=== PATIENT | male | born 1985 | race Caucasian/White ===

== ENCOUNTER 2023-08-19 19:58 | Emergency (ER) | payer OTHER, SELFPAY ==
[2023-08-19 20:05] VITALS: BP 131/85; PULSE 97; RESP 18; TEMP 37.1; O2SAT 96; BMI 34.4
--- NOTE | 2023-08-19 20:20 | CRLHL7_ITS ---
For Patients: As a result of the Century Cures Act, medical imaging exams and procedure reports are released immediately into your electronic medical record. You may view this report before your referring provider. If you have questions, please contact your health care provider. INDICATION: Back pain. TECHNIQUE: Lumbar spine 2 views. COMPARISON: None. FINDINGS: There are 5 lumbar type vertebral bodies. Small accessory rib on the right at L1. Minimal retrolisthesis of L2 on L3. No acute fracture identified. Vertebral body and disc space heights are well maintained. The sacroiliac joints are normal in appearance. Soft tissues are unremarkable. IMPRESSION: 1. No acute findings. 2. Minimal retrolisthesis of L2 on L3. Dictated by Paty Miles MD @ 08/19/2023 8:41:59 PM (Electronically Signed)
--- NOTE | 2023-08-19 20:21 | ED.BACK ---
HPI - Back Pain/Injury General Chief Complaint: Back Injury/Pain Stated Complaint: Back injury-work related Time Seen by Provider: 08/19/23 20:17 History of Present Illness HPI Narrative: Patient is a 37-year-old gentleman who has history of back pain previously who presents with pain in his lumbar spine of approximately 36 hours duration. The pain began at work he had no recent injuries. He has had no fevers no chills no bowel or bladder symptoms no nausea no vomiting. He has minimal radiculopathy. The pain is severe and concentrated his low lumbar spine. No signs of fever or infection. Patient is otherwise feeling well with no neurologic symptoms. Related Data Home Medications Medication Instructions Recorded Confirmed gabapentin 100 mg capsule mg PO 3XD 08/19/23 Allergies Allergy/AdvReac Type Severity Reaction Status Date / Time No Known Drug Allergies Allergy Verified 08/19/23 20:11 Review of Systems Status of ROS: Reports: 10 or more systems reviewed and unremarkable except as noted in History and below Exam Narrative: Exam Narrative: EXAM GENERAL: Patient appears comfortable and well. EYES: No scleral icterus. LYMPH: No supraclavicular or cervical lymphadenopathy. SKIN: Visible skin seen during exam normal or with benign process only. EXT: No dependent lower extremity pedal edema. HEART: Regular rate and rhythm with no murmurs, rubs, or gallops. LUNGS: Clear to auscultation bilaterally with no crackles or wheezes. ABD: Soft, non tender, non distended. PSYCH: Good eye contact, speech is not pressured. Examination lumbar spine shows rigidity with decreased range of motion no other palpable abnormalities. Neurologic exam cranial nerves 2-12 grossly intact no focal defects. Const: Vital Signs, click to edit/add: Vital Signs - 24 hr 08/19/23 20:05 Temperature 98.8 F Pulse Rate [Right Pulse Oximeter] 97 Respiratory Rate 18 Blood Pressure [Ri ght Upper Arm] 131/85 Pulse Oximetry 96 Oxygen Delivery Me thod Room Air Course Course ED Course: Lumbar spine x-ray pending. 30 mg IM Toradol given. Vital Signs Vital signs: Initial Vital Signs Temperature 98.8 F 08/19/23 20:05 Temperature Source Temporal Artery Scan 08/19/23 20:05 Pulse Rate 97 08/19/23 20:05 Respiratory Rate 18 08/19/23 20:05 Blood Pressure 131/85 08/19/23 20:05 Blood Pressure Mean 100 08/19/23 20:05 Blood Pressure Position Sitting 08/19/23 20:05 Pulse Oximetry 96 08/19/23 20:05 Oxygen Delivery Method Room Air 08/19/23 20:05 Vital Signs Temperature 98.8 F 08/19/23 20:05 Pulse Rate 97 08/19/23 20:05 Respiratory Rate 18 08/19/23 20:05 Blood Pressure 131/85 08/19/23 20:05 Pulse Oximetry 96 08/19/23 20:05 Oxygen Delivery Method Room Air 08/19/23 20:05 Temperature 98.8 F 08/19/23 20:05 Pulse Rate 97 08/19/23 20:05 Respiratory Rate 18 08/19/23 20:05 Blood Pressure 131/85 08/19/23 20:05 Pulse Oximetry 96 08/19/23 20:05 Oxygen Delivery Method Room Air 08/19/23 20:05 MDM - Back Pain/Injury MDM Narrative Medical decision making narrative: Patient is a 37-year-old gentleman who is otherwise healthy presents with mechanical low back pain. He has a normal neurologic exam has no symptoms of fever. He has no dysuria. I did review his lumbar spine x-rays and see no acute abnormalities. This time patient is treated with Toradol 30 mg IM as well as 5 day course of prednisone 20 mg b.i.d. as well as short course of Vicodin. He will apply ice to follow-up with his primary physician next 2-3 days if symptoms do not improve. No driving or using any machinery in the interim. Differential Diagnosis Differential diagnosis: Likely lumbar radiculopathy, sciatica, strain of lumbar region, renal colic, pyelonephritis, thoracic back pain, AAA and discitis Discharge Plan Discharge Clinical Impression: Strain of lumbar region Patient Disposition: Home, Self-Care Condition: Stable Instructions: Back Pain (ED) Additional Instructions: Prednisone as directed Norvell as directed Ice follow-up with your doctor early this coming week. Activity Level: Activity as Tolerated Discharge Diet: Regular Prescriptions: No Action gabapentin 100 mg capsule PO 3XD Follow Up/Referrals: Butch Cabezas, LAT, ATC, CSCS [Primary Care Provider] - Stand Alone [email or web address] Info Instructions
[2023-08-19] MEDS: KETOROLAC 30 MG/ML inj IM (20:58)
== END 2023-08-19 21:22 | disposition home or self-care (01) ==
LOC: ED 21:11
PROVIDERS: Emergency Provider Internal Medicine
DX: S39.012A Strain of muscle, fascia and tendon of lower back, initial encounter (principal)
CPT/HCPCS: 72100; 96372; 99283; J1885

== ENCOUNTER 2024-03-06 19:05 | Emergency (ER) | payer OTHER, SELFPAY ==
--- NOTE | 2024-03-06 19:07 | ED.GENADULT ---
HPI - General Adult General Chief complaint: Psychiatric Problem/Disorder Stated complaint: mental health Time Seen by Provider: 03/06/24 19:06 History of Present Illness HPI narrative: Pt reports he has been feeling suicidal for a few weeks now, has had issues with depression for years, this is worsening. Having trouble working, getting out of bed. 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 Pt states he does not have a plan to end his life, but feels like he would do so if he could. Denies access to weapons in the home. Has tried doing outpatient therapy and home meds, this has been ineffective. Denies prior hx of hospitalization . Pt has had thoughts about hurting his coworkers as well because they don't understand what 's going on with me. Pt lives at home with his fimitul , they have been in a relationship for 8 years now . Does have shoulder pain as well, this is related to a prior injury and has had ongoing treatment for this. 38-year-old man presenting to the emergency department with concern of suicidal ideations and thoughts of hurting his coworkers, not killing anyone, who he feels do not understand his current struggles with depression or anxiety. Does have a long history of depression and anxiety. He is worried at this point that it might affect his job. 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 He does see a therapist weekly usually online. This is through clinic in [place] I believe. He also has a primary there last seen about 2 or 3 weeks ago. No changes to medications. Reportedly mirtazapine and possibly lorazepam. Sleep has been affected partly as he is working 2nd shift now at work but sleep has always been a challenge. Does not have any specific plan self-harm but these thoughts are concerning as they are new. He has been in any year relationship with his now fimitul. He says that she is part of the problem; that he is struggling. He does feel like he is failing her but can not specify as to what that might be. There was a birthday democrat this last weekend that brought things to a head with his fimitule. Does not have a history of suicide attempts. Has never been hospitalized for psychiatric cares. No family history of suicide. Uses THC chronically and intermittently. Does not really drink alcohol. No other substances. No visual or auditory hallucinations. Related Data Home Medications ?Medication ?Instructions ?Recorded ?Confirmed lorazepam 0.5 mg tablet mg PO 03/06/24 mirtazapine 15 mg tablet 15 mg PO QPM 03/06/24 03/06/24 Allergies Allergy/AdvReac Type Severity Reaction Status Date / Time No Known Drug Allergies Allergy Verified 08/19/23 20:11 Review of Systems Status of ROS: Reports: 6 or more systems reviewed and unremarkable except as noted in History and below PFSH [facility] Social History Smoking Status: Never smoker How often do you have a drink containing alcohol: never How often do you have six or more drinks on one occasion: Never AUDIT-C Alcohol total score: 0 Non-prescribed substance use: denies use Exam Narrative: Exam Narrative: Appropriately casually groomed. Tears up during our conversation. Shares, responds to questions without significant difficulty but does not elaborate greatly. Speech isn't pressured or slurred. Mood is sad and affect congruent. No evidence of self-harm on his person. Heart in mildly elevated rate and regular rhythm. Is breathing easily with lungs appear to be clear. Const: Vital Signs, click to edit/add: Vital Signs - 24 hr 03/06/24 19:08 03/06/24 23:55 Temperature 97.5 F L 99.2 F Pulse Rate [Pulse Oximeter] 92 100 Respiratory Rate 16 16 Blood Pressure [Ri t Upper Arm] 133/83 128/90 H Pulse Oximetry 94 98 Oxygen Delivery Me thod Room Air Room Air Documenting provider has reviewed patient's vital signs: yes Course Vital Signs Vital signs: Initial Vital Signs Temperature 97.5 F L 03/06/24 19:08 Temperature Source Temporal Artery Scan 03/06/24 19:08 Pulse Rate 92 03/06/24 19:08 Respiratory Rate 16 03/06/24 19:08 Blood Pressure 133/83 03/06/24 19:08 Blood Pressure Mean 99 03/06/24 19:08 Blood Pressure Position Sitting 03/06/24 19:08 Pulse Oximetry 94 03/06/24 19:08 Oxygen Delivery Method Room Air 03/06/24 19:08 Vital Signs Temperature 97.5 F L 03/06/24 19:08 Pulse Rate 92 03/06/24 19:08 Respiratory Rate 16 03/06/24 19:08 Blood Pressure 133/83 03/06/24 19:08 Pulse Oximetry 94 03/06/24 19:08 Oxygen Delivery Method Room Air 03/06/24 19:08 Temperature 97.9 F 03/07/24 06:09 Pulse Rate 84 03/07/24 06:09 Respiratory Rate 16 03/07/24 06:09 Blood Pressure 121/80 03/07/24 06:09 Pulse Oximetry 94 03/07/24 06:09 Oxygen Delivery Method Room Air 03/07/24 06:09 Medications Administered Medications: Discontinued Medications Generic Name Dose Route Start Last Admin Trade Name Freq PRN Reason Stop Dose Admin Lorazepam 1 mg 03/06/24 21:19 03/06/24 21:15 Lorazepam 1 Mg Tablet PO 03/06/24 21:20 1 mg ONCE ONE Administration Lorazepam 1 mg 03/06/24 23:44 03/06/24 23:49 Lorazepam 1 Mg Tablet PO 03/06/24 23:45 1 mg ONCE ONE Administration Olanzapine 5 mg 03/06/24 21:19 03/06/24 21:15 Olanzapine 5 Mg Tab.Rapdis PO 03/06/24 21:20 5 mg ONCE ONE Administration Olanzapine 5 mg 03/06/24 23:44 03/06/24 23:49 Olanzapine 5 Mg Tab.Rapdis PO 03/06/24 23:45 5 mg ONCE ONE Administration Medical Decision Making MDM Narrative Medical decision making narrative: Mr. Giang does have mental health care in the community but does not sound as though that is enough at this time. Perhaps we can provide him with more or help with sleep. I am concerned though that he seems to be describing that he does not feel like he has any other options and might benefit from psychiatric hospitalization. I have consulted with FAN. Following longer interview with FAN it is apparent that he is really struggling at work in particular. Actually has to barricade himself in the bathroom for extended period of time due to extreme levels anxiety and panic attacks. He cannot feel safe alone at this time. Will be looking for psychiatric facility. He is not on a hold at this time. I would expect him to be here overnight. Will be offering sleep med. Labs pending. He would except location help with sleep. Was given lorazepam and 5 mg of olanzapine. Labs are unremarkable, as expected Did begin to think about going home. The alison Dey arrived. Apparently had been looking for crisis beds. Will be pursuing again in the morning. Meanwhile Giovanni is talking about going home. I think it would be beneficial still for hospitalization. Will continue to look. We will re-dose with lorazepam and olanzapine as one of his major concerns was not being able to sleep tonight. [facility]. Anticipate transport there yet tonight. Lab Data Lab results reviewed: Yes I reviewed the patient's lab results Labs: Lab Results 03/06/24 03/06/24 03/06/24 Range/Units 20:50 21:05 22:05 WBC 8.70 (4.50-11.00) K/uL RBC 5.97 H (4.30-5.90) m/uL Hgb 17.2 (13.5-17.5) gm/dL Hct 49.5 (37.0-53.0) % MCV 83 (80-100) fL MCH 29 (26-34) pg MCHC 35 (32-36) gm/dL RDW Coeff of Pura 12.0 (11.5-15.5) % Plt Count 200 (140-440) K/uL Neut % (Auto) 56.6 (42.0-72.0) % Lymph % (Auto) 32.5 (20-44) % [place] % (Auto) 6.1 (0.0-11.0) % Eos % (Auto) 4.3 (0.0-7.0) % Baso % (Auto) 0.3 (0.0-3.0) % Neut # (Auto) 4.92 (1.7-7.0) K/uL Lymph # (Auto) 2.83 (0.90-2.90) K/uL [place] # (Auto) 0.50 (0.00-0.90) K/UL Eos # (Auto) 0.37 (0.00-0.50) K/uL Baso # (Auto) 0.03 (0.00-0.30) K/uL Abs Immat Gran (auto) 0.02 (0.00-0.30) K/uL Imm/Tot Granulo (auto) 0.2 % Sodium 142 (135-149) mmol/L Potassium 3.4 L (3.6-5.1) mmol/L Chloride 108 (96-114) mmol/L Carbon Dioxide 26 (20-32) mmol/L Anion Gap 8 (7-15) mEq/L BUN 13 (5-24) mg/dL Creatinine 0.8 (0.5-1.5) mg/dL Estimated Creat Clear 160.88 Estimated GFR 118 ml/min Glucose 138 H (60-115) mg/dL Calcium 9.5 (8.4-10.6) mg/dL TSH 2.950 (0.270-4.20) uIU/mL Salicylates < 1.0 L (1.0-10) mg/dL Urine Opiates Screen Negative (Negative) Ur Oxycodone Screen Negative (Negative) Urine Methadone Screen Negative (Negative) Acetaminophen < 10.0 L (10.0-30.0) ug/mL Ur Barbiturates Screen Negative (Negative) U Tricyclic Antidepress Negative (Negative) Ur Phencyclidine Scrn Negative (Negative) Ur Amphetamines Screen Negative (Negative) U Methamphetamines Scrn Negative (Negative) U Benzodiazepines Scrn POSITIVE A (Negative) Urine Cocaine Screen Negative (Negative) U Marijuana (THC) Screen POSITIVE A (Negative) Ur Drug Screen Comment See Note Ethyl Alcohol < 0.01 L (0.01-0.03) % SARS-CoV-2 (PCR) Negative SARS-CoV-2 (Negative) Discharge Plan Discharge Clinical Impression: Depression, Suicidal ideation, Anxiety Patient Disposition: Xfer Psychiatric Hosp Condition: Stable Prescriptions: No Action lorazepam 0.5 mg tablet PO mirtazapine 15 mg tablet 15 mg PO QPM Stand Alone Forms: [facility] Info Instructions
[2024-03-06 19:08] VITALS: BP 133/83; PULSE 92; RESP 16; TEMP 36.4; O2SAT 94; BMI 30.8
[2024-03-06 21:13] LABS: Basophils Absolute Auto 0.03 K/uL (0.00-0.30); Basophils Percent Auto 0.3 % (0.0-3.0); Eosinophils Absolute Auto 0.37 K/uL (0.00-0.50); Eosinophils Percent Auto 4.3 % (0.0-7.0); Hematocrit 49.5 % (37.0-53.0); Hemoglobin* 17.2 gm/dL (13.5-17.5); Immature Granulocytes Abs Auto 0.02 K/uL (0.00-0.30); Immature Granulocytes Pct Auto 0.2 %; Lymphocytes Absolute Auto 2.83 K/uL (0.90-2.90); Lymphocytes Percent Auto 32.5 % (20-44); Mean Corpuscular HGB Conc 35 gm/dL (32-36); Mean Corpuscular Hemoglobin 29 pg (26-34); Mean Corpuscular Volume 83 fL (80-100); Monocytes Percent Auto 6.1 % (0.0-11.0); Neutrophils Absolute Auto 4.92 K/uL (1.7-7.0); Neutrophils Percent Auto 56.6 % (42.0-72.0); Platelet Count* 200 K/uL (140-440); Red Blood Count 5.97 m/uL (4.30-5.90)
[2024-03-06] MEDS: OLANZapine 5 MG TAB.RAPDIS PO ×2 (21:15→23:49)
[2024-03-06] MEDS: LORazepam 1 MG TABLET PO ×2 (21:15→23:49)
[2024-03-06 21:22] LABS: Slide Review Reflex No
[2024-03-06 21:35] LABS: Amphetamine Screen Urine Negative (Negative); Barbiturate Screen Urine Negative (Negative); Benzodiazepines Screen Urine POSITIVE (Negative); Cannabinoid Screen Urine POSITIVE (Negative); Cocaine Screen Urine Negative (Negative); Methadone Screen Urine Negative (Negative); Methamphetamines Screen Urine Negative (Negative); Opiate Screen Urine Negative (Negative); Oxycodone Screen Urine Negative (Negative); Phencyclidine Screen Urine Negative (Negative); Tricyclic Antidepressant Urine Negative (Negative)
[2024-03-06 21:43] LABS: Chloride* 108 mmol/L (96-114); Potassium* 3.4 mmol/L (3.6-5.1); Sodium* 142 mmol/L (135-149)
[2024-03-06 21:46] LABS: Anion Gap 8 mEq/L (7-15); Blood Urea Nitrogen* 13 mg/dL (5-24); Carbon Dioxide* 26 mmol/L (20-32); Creatinine* 0.8 mg/dL (0.5-1.5); Est. Creatinine Clearance* 160.88; Estimated Glomerular Filt Rate 118 ml/min
[2024-03-06 21:47] LABS: Calcium* 9.5 mg/dL (8.4-10.6); Glucose* 138 mg/dL (60-115)
[2024-03-06 21:48] LABS: Acetaminophen* < 10.0 ug/mL (10.0-30.0); Ethanol* < 0.01 % (0.01-0.03); Salicylate* < 1.0 mg/dL (1.0-10)
[2024-03-06 22:42] LABS: SARS PCR* Negative SARS-CoV-2 (Negative)
[2024-03-06 23:55] VITALS: BP 128/90; PULSE 100; RESP 16; TEMP 37.3; O2SAT 98
--- NOTE | 2024-03-07 01:26 | PC.NURSE ---
patient accepted by [facility], Dr Daniels accepting MD. dispatch contacted, ETA around 0700 for transport. patient currently sleeping in room, RR even and unlabored.
[2024-03-07 02:00] VITALS: RESP 16
[2024-03-07 04:00] VITALS: RESP 16
[2024-03-07 06:09] VITALS: BP 121/80; PULSE 84; RESP 16; TEMP 36.6; O2SAT 94
--- NOTE | 2024-03-07 06:10 | PC.NURSE ---
patient updated about his acceptance at [facility] and informed we will be setting up transport for him as soon as we are able. patient monitored via video monitor while in room. no behavioral concerns this shift, patient has been cooperative with care provided.
--- NOTE | 2024-03-07 11:33 | ED.NURSE ---
offered lunch, pt declined
== END 2024-03-07 13:44 ==
PROVIDERS: Emergency Provider Family Medicine
DX: R45.851 Suicidal ideations (principal); F32.A Depression, unspecified; F41.8 Other specified anxiety disorders
CPT/HCPCS: 36415; 80048; 80143; 80179; 80306; 82077; 84443; 85025; 87635; 99284; 99285; A9270

== ENCOUNTER 2024-03-07 13:41 | Outpatient (CLI) | payer OTHER, SELFPAY | END 2024-03-07 13:42 | disposition home or self-care (01) | LOC: AMB 03-10 06:39 | PROVIDERS: Visit Provider Emergency Medicine | DX: F32.A Depression, unspecified (principal); F41.9 Anxiety disorder, unspecified; R45.851 Suicidal ideations | CPT/HCPCS: A0425; A0428 ==